=== PATIENT | female | born 1995 | race American Indian/Alaskan Native ===

== ENCOUNTER 2017-08-22 14:36 | Emergency (ER) | payer OTHER ==
[2017-08-22 15:08] VITALS: BP 128/82
[2017-08-22 15:23] LABS: Basophils % (Auto) 0.2 % (0.0-1.8); Eosinophils # (Auto) 0.6 K/mm3 (0.0-0.4); Eosinophils % (Auto) 5.9 % (0.0-4.3); Hematocrit 44.4 % (30.3-42.9); Hemoglobin 13.9 gm/dl (10.1-14.3); Lymphocytes # (Auto) 2.8 K/mm3 (1.2-5.4); Lymphocytes % (Auto) 26.4 % (13.4-35.0); Mean Corpuscular HGB Conc 31 % (30-34); Mean Corpuscular Hemoglobin 27 pg (28-32); Mean Corpuscular Volume 88 fl (79-97); Monocytes # (Auto) 1.2 K/mm3 (0.0-0.8); Monocytes % (Auto) 11.3 % (0.0-7.3); Platelet Count 307 K/mm3 (140-440); Red Blood Count 5.06 M/mm3 (3.65-5.03); Red Cell Distribution Width 13.4 % (13.2-15.2)
[2017-08-22 17:21] LABS: Bacteria,Urine 1+ /HPF (Negative); Bilirubin,Urine NEG (Negative); Blood,Urine LG (Negative); Color,Urine Amber (Yellow); Mucus,Urine FEW /HPF; Protein,Urine <15 mg/dL mg/dL (Negative); Urobilinogen,Urine < 2.0 mg/dL (<2.0)
--- NOTE | 2017-08-22 19:31 | Emergency Department Report ---
ED Female HPI - General Chief complaint: Vaginal Bleeding Stated complaint: POSS MISCARRIAGE Time Seen by Provider: 08/22/17 19:12 Source: patient Mode of arrival: Ambulatory Limitations: No Limitations - History of Present Illness Initial comments: Patient is 22 years old female with no significant past medical history. Patient is 1 para 0. Patient presented today with vaginal spotting that started this morning. Patient stated last menstrual period was end of July. Patient denied any nausea or vomiting. No other complaint. MD Complaint: vaginal bleeding -: This morning Location: suprapubic Quality: cramping Are you Now?: Yes Associated Symptoms: vaginal bleeding, abdominal pain. denies: vaginal discharge, nausea/vomiting, fever/chills, headaches, loss of appetite, dysuria, hematuria, rash, shortness of breath, syncope, weakness - Related Data Sexually active: Yes Home Medications Medication Instructions Recorded Confirmed Last Taken LORazepam 0.5 mg PO DAILY 06/16/13 04/27/15 04/26/15 Ziprasidone [Geodon] 60 mg PO DAILY 04/25/15 04/27/15 04/26/15 buPROPion [Wellbutrin] 75 mg PO DAILY 04/25/15 04/27/15 04/26/15 Allergies Allergy/AdvReac Type Severity Reaction Status Date / Time No Known Allergies Allergy Verified 04/25/15 15:06 ED Review of Systems ROS: Stated complaint: POSS MISCARRIAGE Other details as noted in HPI Comment: All other systems reviewed and negative Constitutional: denies: chills, fever Respiratory: denies: cough, orthopnea, shortness of breath, SOB with exertion, SOB at rest Cardiovascular: denies: chest pain, palpitations, dyspnea on exertion Gastrointestinal: abdominal pain. denies: nausea, vomiting, diarrhea, constipation, hematemesis, melena, hematochezia Neurological: denies: headache, weakness ED Past Medical Hx - Past Medical History Previous Medical History?: Yes Hx Psychiatric Treatment: Yes (bipolar, depression, anxiety) Hx Asthma: Yes Additional medical history: Cutting ,Bulemia - Surgical History Past Surgical History?: No - Social History Smoking Status: Current Every Day Smoker Substance Use Type: Prescribed - Medications Home Medications: Home Medications Medication Instructions Recorded Confirmed Last Taken Type LORazepam 0.5 mg PO DAILY 06/16/13 04/27/15 04/26/15 History Ziprasidone [Geodon] 60 mg PO DAILY 04/25/15 04/27/15 04/26/15 History buPROPion [Wellbutrin] 75 mg PO DAILY 04/25/15 04/27/15 04/26/15 History ED Physical Exam - General Limitations: No Limitations General appearance: alert, in no apparent distress - Head Head exam: Present: atraumatic, normocephalic, normal inspection - Eye Eye exam: Present: normal appearance, PERRL - ENT ENT exam: Present: normal exam, normal orophraynx, mucous membranes moist - Neck Neck exam: Present: normal inspection, full ROM. Absent: tenderness, meningismus, lymphadenopathy - Respiratory Respiratory exam: Present: normal lung sounds bilaterally. Absent: respiratory distress, wheezes, rales, rhonchi, chest wall tenderness - Cardiovascular Cardiovascular Exam: Present: regular rate, normal rhythm, normal heart sounds - GI/Abdominal GI/Abdominal exam: Present: soft, normal bowel sounds. Absent: distended, tenderness, guarding, rebound, rigid, organomegaly, mass, bruit, pulsatile mass , hernia - Extremities Exam Extremities exam: Present: normal inspection, full ROM, normal capillary refill - Back Exam Back exam: Present: normal inspection, full ROM. Absent: CVA tenderness (L) - Neurological Exam Neurological exam: Present: alert, oriented X3, CN II-XII intact, normal gait - Skin Skin exam: Present: warm, intact, normal color ED Course Vital Signs 08/22/17 15:03 Temperature 98.8 F Pulse Rate 104 H Respiratory 18 Rate Blood Pressure 128/82 O2 Sat by Pulse 97 Oximetry ED Medical Decision Making - Lab Data Result diagrams: 08/22/17 15:10 - Medical Decision Making Patient hCG is 681. Which is below the level for an ultrasound to detect any gestational sac. At this moment there is no clinical evidence of ectopic . Patient is hemodynamically stable. I advised patient and her mother to follow-up with OB or return back to the ER for recheck of her hCG level. Patient's and her family understood the instructions very well and they said they will follow-up with [facility]. Critical care attestation.: If time is entered above; I have spent that time in minutes in the direct care of this critically ill patient, excluding procedure time. ED Disposition Clinical Impression: Abnormal vaginal bleeding, Vaginal bleeding during Disposition: DC-01 TO HOME OR SELFCARE Is pt being admited?: No Condition: Stable Instructions: Abdominal Pain in (ED) Additional Instructions: Please follow-up with your OB in the next 2 days to recheck your blood level for which is called hCG. Your blood level today is 681. Forms: Work/School Release Form(ED)
[2017-08-22] MEDS ORDERED: TYLENOL PO ONE (19:38)
== END 2017-08-22 19:40 | disposition home or self-care (01) ==
LOC: ED 14:36
DX: O20.9 Hemorrhage in early pregnancy, unspecified (principal); O99.331 Smoking (tobacco) complicating pregnancy, first trimester; O99.511 Diseases of the respiratory system complicating pregnancy, first trimester; O99.341 Other mental disorders complicating pregnancy, first trimester; F31.9 Bipolar disorder, unspecified; F41.9 Anxiety disorder, unspecified; Z3A.01 Less than 8 weeks gestation of pregnancy
CPT/HCPCS: 36415; 81001; 84702; 85025; 86850; 86900; 86901; 99283

== ENCOUNTER 2019-04-06 19:37 | Emergency (ER) | payer OTHER ==
[2019-04-06 19:41] VITALS: BP 151/90
--- NOTE | 2019-04-06 20:33 | Event Note ---
ED Screening Note ED Screening Note: vaginal spotting tonight lower abd cramping 12 weeks POLE PEELER: lora azevedo /P:0/A:2 PMHx bipolar, asthma +smoker This initial assessment/diagnostic orders/clinical plan/treatment(s) is/are subject to change based on patients health status, clinical progression and re- assessment by fellow clinical providers in the ED. Further treatment and workup at subsequent clinical providers discretion. Patient/guardian urged not to elope from the ED as their condition may be serious if not clinically assessed and managed. Initial orders include: labs, UA, US OB
[2019-04-06 21:03] LABS: Bilirubin,Urine NEG (Negative); Blood,Urine SM (Negative); Color,Urine Yellow (Yellow); Mucus,Urine FEW /HPF; Protein,Urine <15 mg/dL mg/dL (Negative)
--- NOTE | 2019-04-06 21:13 | Emergency Department Report ---
ED Female HPI - General Chief complaint: Vaginal Bleeding Stated complaint: 3MTH PREG,SPOTTING AND CRAMPS Time Seen by Provider: 04/06/19 20:31 Source: patient Mode of arrival: Ambulatory Limitations: No Limitations - History of Present Illness Initial comments: This is a very pleasant 24-year-old female with history of bipolar depression who is currently 12 weeks 6 days. Her HANNAH is due date is 10/13/2019 she receives care at [facility]. She had mild vaginal spotting and pelvic cramping. Once she realized that was was she immediately stopped her psychiatric medications without informing her psychiatrist. She desires a mild sedative. She is undergoing a lot of stress. She denies any suicidal or homicidal ideation. Her primary psychiatrist is Dr. Hurst. She is concerned that her tobacco abuse will harm her baby. MD Complaint: vaginal bleeding, pelvic pain -: Gradual, days(s) (1) Severity: mild Severity scale (0 -10): 3 Quality: cramping Consistency: intermittent Improves with: none Worsens with: none Are you Now?: Yes Associated Symptoms: denies other symptoms - Related Data Home Medications Medication Instructions Recorded Confirmed Last Taken LORazepam 0.5 mg PO DAILY 06/16/13 04/27/15 04/26/15 Ziprasidone [Geodon] 60 mg PO DAILY 04/25/15 04/27/15 04/26/15 buPROPion [Wellbutrin] 75 mg PO DAILY 04/25/15 04/27/15 04/26/15 Allergies Allergy/AdvReac Type Severity Reaction Status Date / Time No Known Allergies Allergy Verified 04/25/15 15:06 ED Review of Systems ROS: Stated complaint: 3MTH PREG,SPOTTING AND CRAMPS Other details as noted in HPI Comment: All other systems reviewed and negative Constitutional: denies: diaphoresis, fever Cardiovascular: denies: chest pain Gastrointestinal: denies: abdominal pain, nausea, vomiting Musculoskeletal: denies: back pain ED Past Medical Hx - Past Medical History Previous Medical History?: Yes Hx Psychiatric Treatment: Yes (bipolar, depression, anxiety) Hx Asthma: Yes Additional medical history: Cutting ,Bulemia - Surgical History Past Surgical History?: No - Social History Smoking Status: Current Every Day Smoker Substance Use Type: None - Medications Home Medications: Home Medications Medication Instructions Recorded Confirmed Last Taken Type LORazepam 0.5 mg PO DAILY 06/16/13 04/27/15 04/26/15 History Ziprasidone [Geodon] 60 mg PO DAILY 04/25/15 04/27/15 04/26/15 History buPROPion [Wellbutrin] 75 mg PO DAILY 04/25/15 04/27/15 04/26/15 History ED Physical Exam - General Limitations: No Limitations General appearance: alert, in no apparent distress - Head Head exam: Present: atraumatic, normocephalic - Eye Eye exam: Present: normal appearance - ENT ENT exam: Present: mucous membranes moist - Neck Neck exam: Present: normal inspection, full ROM - Respiratory Respiratory exam: Present: normal lung sounds bilaterally. Absent: respiratory distress, wheezes, rales, stridor - Cardiovascular Cardiovascular Exam: Present: regular rate, normal rhythm, normal heart sounds. Absent: systolic murmur, diastolic murmur, rubs, gallop - GI/Abdominal GI/Abdominal exam: Present: soft, normal bowel sounds. Absent: distended, tenderness, guarding, rebound - Extremities Exam Extremities exam: Present: normal inspection - Back Exam Back exam: Present: normal inspection - Neurological Exam Neurological exam: Present: alert, oriented X3 - Psychiatric Psychiatric exam: Present: normal affect, normal mood, other (pleasant insightful honest very self-aware). Absent: depressed, agitated, anxious, flat affect, manic, homicidal ideation, suicidal ideation - Skin Skin exam: Present: warm, dry, intact, normal color. Absent: rash ED Course Vital Signs 04/06/19 04/06/19 19:40 20:31 Temperature 99.1 F 99.1 F Pulse Rate 127 H 103 H Respiratory 18 18 Rate Blood Pressure 151/90 151/90 O2 Sat by Pulse 98 98 Oximetry ED Medical Decision Making - Lab Data Result diagrams: 04/06/19 21:05 Laboratory Results - last 24 hr 04/06/19 04/06/19 04/06/19 20:47 21:05 21:05 WBC 13.4 H RBC 4.60 Hgb 13.2 Hct 40.6 MCV 88 MCH 29 MCHC 33 RDW 12.0 L Plt Count 290 HCG, Quant 17315 H Urine Color Yellow Urine Turbidity Slightly-cloudy Urine pH 6.0 Ur Specific [place] 1.021 Urine Protein <15 mg/dl Urine Glucose (UA) Neg Urine Ketones Neg Urine Blood Sm Urine Nitrite Neg Urine Bilirubin Neg Urine Urobilinogen 2.0 Ur Leukocyte Esterase Tr Urine WBC (Auto) 3.0 Urine RBC (Auto) 3.0 U Epithel Cells (Auto) 9.0 Urine Mucus Few - Radiology Data Radiology results: report reviewed Ultrasound revealed single living intrauterine with estimated sonographic age 13 weeks 3 days - Medical Decision Making 1. Threatened miscarriage according to electronic medical record from August 2017, blood type A positive given reassurance. 2. Bipolar depression: I strongly encouraged follow up wither her personal psychatrist. She understands that her tobacco use will put her at risk for complications. She currently does not appear to be a harm to herself or others. She is quite insightful and honest. She does have outpatient resources. Critical care attestation.: If time is entered above; I have spent that time in minutes in the direct care of this critically ill patient, excluding procedure time. ED Disposition Clinical Impression: Threatened miscarriage, Bipolar depression Disposition: DC-01 TO HOME OR SELFCARE Is pt being admited?: No Does the pt Need Aspirin: No Condition: Stable Instructions: Threatened Miscarriage (ED) Forms: Work/School Release Form(ED)
--- NOTE | 2019-04-06 21:34 | Ultrasound Report ---
ULTRASOUND OBSTETRIC INDICATION / CLINICAL INFORMATION: , vag bleeding. Clinical Gestational Age (GA): 12 weeks 6 days TECHNIQUE: Transabdominal. COMPARISON: None available. FINDINGS: GESTATIONAL SAC: Well-defined oval shape and intrauterine in location. EMBRYO/FETUS: No significant abnormality. - [place]-Rump Length = 6.8 cm = 13 weeks, 0 day(s). - Heart Rate, beats per minute (if present) = 168 ADNEXA: No significant abnormality. FREE FLUID: None. ADDITIONAL FINDINGS: Biparietal diameter 2.0 cm, femur length 1.3 cm IMPRESSION: 1. Single, living intrauterine with estimated sonographic age of 13 weeks, 3 day(s). This i s concordant with clinical gestational age. Signer Name: Carloz Cline MD Signed: 04/06/2019 9:30 PM Workstation Name: [id number]
[2019-04-06 22:03] LABS: Hematocrit 40.6 % (30.3-42.9); Hemoglobin 13.2 gm/dl (10.1-14.3); Mean Corpuscular HGB Conc 33 % (30-34); Mean Corpuscular Volume 88 fl (79-97); Platelet Count 290 K/mm3 (140-440)
== END 2019-04-06 22:55 | disposition home or self-care (01) ==
LOC: ED 19:37
DX: O20.0 Threatened abortion (principal); O99.341 Other mental disorders complicating pregnancy, first trimester; F32.9 Major depressive disorder, single episode, unspecified; F41.9 Anxiety disorder, unspecified; O99.331 Smoking (tobacco) complicating pregnancy, first trimester; Z79.899 Other long term (current) drug therapy; Z3A.13 13 weeks gestation of pregnancy
CPT/HCPCS: 36415; 76801; 81001; 84702; 85027; 86900; 86901

== ENCOUNTER 2019-07-05 12:47 | Outpatient (CLI) | payer BC, MEDICAID ==
[2019-07-05] MEDS ORDERED: ACETAMINOPHEN 500 MG TAB PO ONE (14:30)
--- NOTE | 2019-07-05 16:31 | Ultrasound Report ---
Limited obstetrical ultrasound INDICATION: , fall COMPARISON: 04/06/2019 Intrauterine is again seen. Fetus is in a cephalic position. Central is posterior and free of the internal cervical os. No obvious placental abnormalities are seen with no evidence of abruptio n. Amniotic fluid volume qualitatively appears within normal limits and FLAKO is within normal limits a t 11.6 cm.. survey was not performed but no obvious abnormalities are noted. Cardiac activity w as documented with heart rate of 154 bpm. Estimated gestational age is 26 weeks 1 day which cor relates with clinical dating and prior sonographic dating. BIOPHYSICAL PROFILE breathing movements: 2/2 movements: 2/2 posture and tone tone: 2/2 Qualitative amniotic fluid volume: 2/2 Total score: 8/8, within normal limits Signer Name: Pete Desir MD Signed: 07/05/2019 4:26 PM Workstation Name: [id number]
[2019-07-05 16:42] VITALS: BP 113/64
== END 2019-07-05 17:03 | disposition left against medical advice (07) ==
LOC: EDSTATUS 13:24 → TRG 13:27
PROVIDERS: ATTEND Obstetrics & Gynecology
DX: O26.892 Other specified pregnancy related conditions, second trimester (principal); R10.2 Pelvic and perineal pain; Z3A.25 25 weeks gestation of pregnancy
CPT/HCPCS: 76815

== ENCOUNTER 2019-09-30 22:14 | Observation (INO) | payer BC, MEDICAID ==
[2019-09-30 22:34] VITALS: BP 110/60
== END 2019-09-30 22:30 | disposition left against medical advice (07) ==
LOC: INTOOBSV 22:14 → APU 22:14
PROVIDERS: ADMIT Obstetrics & Gynecology; ATTEND Obstetrics & Gynecology
DX: O9A.319 Physical abuse complicating pregnancy, unspecified trimester (principal); X58.XXXA Exposure to other specified factors, initial encounter; Y93.89 Activity, other specified; Y92.89 Other specified places as the place of occurrence of the external cause; Z3A.00 Weeks of gestation of pregnancy not specified
CPT/HCPCS: G0378; G0379

== ENCOUNTER 2020-11-24 15:15 | Outpatient (CLI) | payer MEDICAID ==
--- NOTE | 2020-11-24 17:41 | Mammography Report ---
BILATERAL DIGITAL DIAGNOSTIC MAMMOGRAM WITH CAD , 11/24/2020 RIGHT COMPLETE BREAST ULTRASOUND CLINICAL INFORMATION / INDICATION: Patient is stating she has a right breast lump and is experiencing bilateral breast pain. Of note, the patient has a very strong family history of breast cancer with r elatives as young as 30 been diagnosed with breast cancer. TECHNIQUE: Digital bilateral mammographic imaging was performed. Spot compression views were obtained . Complete ultrasound of all four (4) quadrants was performed. This examination was interpreted with the benefit of Computer-Aided Detection (CAD) analysis. COMPARISON: This is the patient's first mammogram. FINDINGS: Breast Density: The breasts are heterogeneously dense, which may obscure small masses. MAMMOGRAPHIC FINDINGS: No dominant mass, suspicious calcifications, or architectural distortion in ei ther breast. There is no mammographic correlate to account for the palpable lump in the right breast. No mammographic correlate to account for the complaint of bilateral breast pain. ULTRASOUND FINDINGS: Complete sonographic evaluation of all 4 quadrants and retroareolar region was p erformed. Sonographic evaluation of the right breast in the area of the palpable lump does not demo nstrate any sonographic abnormality. There is no solid mass, cyst, or suspicious shadowing identified to account for the complaint of palpable lump superiorly. IMPRESSION: No mammographic or sonographic evidence of malignancy. There is no mammographic or sonogr aphic abnormality to account for the complaint of breast pain or right palpable lump. Clinical corre lation is recommended. Follow up recommendation: Unless otherwise clinically indicated, recommend patient return to routine screening mammography at age 40. A more thorough evaluation of the patient's family's breast cancer h istory is recommended to determine accurate age to begin screening mammography. BI-RADS Category 2: Benign. A "normal" or negative report should not discourage follow up or biopsy of a clinically significant f inding. A written summary of these findings will be mailed to the patient. The patient will be entered into a mammography reporting system which will generate a reminder letter for the patient's next appointmen t at the appropriate interval. According to the [employer], yearly mammograms are recommended starting at age 40 and continuing as long as a woman is in good health. Breast MRI is recommended for women with an anabel roximately 20-25% or greater lifetime risk of breast cancer, including women with a strong family his tory of breast or ovarian cancer and women who have been treated for Hodgkin's disease. Signer Name: Opal Mckeon MD Signed: 11/24/2020 5:36 PM Workstation Name: [id number]
== END 2020-11-24 15:16 | disposition home or self-care (01) ==
LOC: US 15:15
PROVIDERS: ATTEND Internal Medicine
DX: N64.4 Mastodynia (principal); R92.8 Other abnormal and inconclusive findings on diagnostic imaging of breast
CPT/HCPCS: 77066